=== PATIENT | female | born 1985 | race Caucasian/White ===

== ENCOUNTER 2020-11-20 22:46 | Emergency (ER) | payer SELFPAY ==
--- NOTE | 2020-11-20 22:52 | Emergency Department Report ---
Blank Doc - Documentation Documentation: 35-year-old female that presents with right middle finger laceration that occu rred today while cutting potatoes with a knife. 1- This initial assessment/diagnostic orders/clinical plan/ treatment(s) is/are subject to change based on pt's health status, clinical progression and re- assessment by fellow clinical providers in the ED. Further treatment and workup at subsequent clinical provers discretion. Patient/guardians urged not to elope from ED as their condition may be serious if not clinically assessed and managed. 2-x-rays
[2020-11-20 22:53] VITALS: BP 155/95
--- NOTE | 2020-11-20 23:24 | XRay Report ---
RIGHT HAND 3 VIEW(S) INDICATION / CLINICAL INFORMATION: lac to right middle finger COMPARISON: None available. FINDINGS: BONES / JOINT(S): No acute fracture or subluxation. No significant arthritis. SOFT TISSUES: Bandage around the fingers. No radiopaque foreign body. ADDITIONAL FINDINGS: None. Signer Name: Garry Saleh MD Signed: 11/20/2020 11:20 PM Workstation Name: [id number]
[2020-11-20] MEDS ORDERED: DIPHtheria,PERTUSSIS(ACELL),TETANUS VACCINE/PF 0.5 ML VIAL IM ONE (23:32)
[2020-11-20] MEDS ORDERED: LIDOCAINE (1%) 10 MG/1 ML VIAL 20 ML MDV INFILTRATI ONE (23:35)
[2020-11-20] MEDS ORDERED: SODIUM CHLORIDE 0.9% IRR 500 ML BOTTLE IR ONE (23:36)
[2020-11-20] MEDS ORDERED: BUPIVACAINE/PF (0.5%) 5 MG/1 ML 10 ML VIAL INFILTRATI ONE (23:38)
--- NOTE | 2020-11-20 23:46 | Emergency Department Report ---
HPI - General Chief Complaint: Wound/Laceration Time Seen by Provider: 11/20/20 22:50 - HPI HPI: Room 45 The patient is a 35-year-old female present with a chief complaint of laceration to finger. The patient states less than 1 hour ago she accidentally cut the base of her right middle finger with a kitchen knife while preparing food. The patient states she believes her last tetanus shot was between 5 and 6 years ago but is not certain. The patient states she is unable to flex her right middle finger ED Past Medical Hx - Past Medical History Previous Medical History?: No - Surgical History Additional Surgical History: - Family History Family history: no significant - Social History Smoking Status: Never Smoker Substance Use Type: None (Denies illicit drug use) - Medications Home Medications: Home Medications Medication Instructions Recorded Confirmed Last Taken Type Docusate Sodium [Colace CAP] 100 mg PO BID #60 capsule 12/19/15 Unknown Rx Ferrous Sulfate [Feosol 325 MG tab] 325 mg PO TID #90 tablet 12/19/15 Unknown Rx Ibuprofen [Motrin 800 MG tab] 800 mg PO Q8HR PRN #90 tablet 12/19/15 Unknown Rx oxyCODONE /ACETAMINOPHEN [Percocet 1 tab PO Q6HR PRN #30 tablet 12/19/15 Unknown Rx 5/325 mg] HYDROcodone/APAP 5-325 [[employer] 1 - 2 each PO Q6HR PRN #14 tablet 11/21/20 Unknown Rx 5/325] Ibuprofen [Motrin 800 MG tab] 800 mg PO Q8HR PRN #20 tablet 11/21/20 Unknown Rx cephALEXin [Keflex] 500 mg PO Q6HR #28 capsule 11/21/20 Unknown Rx ED Review of Systems ROS: Stated complaint: RT HAND LACERATION Other details as noted in HPI Constitutional: no symptoms reported Respiratory: no symptoms reported Endocrine: no symptoms reported Musculoskeletal: other (Unable to flex right middle finger) Skin: other (Laceration to right middle finger) Physical Exam - Physical Exam Vital Signs: Vital Signs 11/20/20 22:49 Temperature 98.0 F Pulse Rate 111 H Respiratory 17 Rate Blood Pressure 155/95 O2 Sat by Pulse 97 Oximetry Physical Exam: GENERAL: The patient is well-developed well-nourished female sitting in chair appearing slightly anxious HEENT: Normocephalic. Atraumatic. Extraocular motions are intact. Patient has moist mucous membranes. NECK: Supple. Trachea midline CHEST/LUNGS: There is no respiratory distress noted. HEART/CARDIOVASCULAR: Regular. Normal capillary refill right middle finger SKIN: There is an approximately 3 cm laceration encircling the palmar aspect of the right middle finger between the MCP and PIP. There is a second laceration at the base of the right ring finger just distal to the MCP approximately 2 cm in length. NEURO: The patient is awake, alert, and oriented. The patient is cooperative. Sensation to light touch intact of the right middle finger. Patient is unable to flex the right middle finger. Pulse ox placed on the right middle finger reads 99% on room air MUSCULOSKELETAL: Patient unable to flex right middle finger ED Course Vital Signs 11/20/20 22:49 Temperature 98.0 F Pulse Rate 111 H Respiratory 17 Rate Blood Pressure 155/95 O2 Sat by Pulse 97 Oximetry - Consultations Consultation #1: 11/20/20 23:42 [facility] transfer line called 11/21/20 00:30 Case discussed with orthopedic hand specialist Dr. Ignacio- states the patient has normal capillary refill and pulse ox placed on the affected finger is greater than 85 to 90% the wound may be loosely approximated in the ED the patient may follow-up as an outpatient for further management. The patient should call [phone] - Laceration /Wound Repair Right Finger Wound Location: upper extremity Wound Length (cm): 3 Wound's Depth, Shape: into muscle Wound Explored: no foreign body removed Irrigated w/ Saline (ccs): 500 Betadine Prep?: Yes Anesthesia: 1% Lidocaine Volume Anesthetic (ccs): 6 (Lidocaine 1% was mixed with bupivacaine 0.5% in a 1:1 ratio) Wound Repaired With: sutures Suture Size/Type: 4:0 Number of Sutures: 4 Sterile Dressing Applied?: Yes Lateral Finger Wound Location: mouth Wound Length (cm): 2 Wound's Depth, Shape: linear Wound Explored: clean Irrigated w/ Saline (ccs): 0 (Copious) Betadine Prep?: Yes Anesthesia: 1% Lidocaine Volume Anesthetic (ccs): 4 (Lidocaine 1% plain was mixed with bupivacaine 0.5% in a 1:1 ratio) Wound Repaired With: sutures Suture Size/Type: 4:0 Number of Sutures: 3 Sterile Dressing Applied?: Yes - Nerve Block Consent Obtained: verbal consent Time Out Performed: No Local Anesthetic Used: Lidocaine 1% Amount of anesthesia used: 6 Side: right Nerve Blocks: digital Procedure Successful: Yes Complications: none Patient Tolerated Procedure: well ED Medical Decision Making - Medical Decision Making It was explained to the patient that she needs to follow-up promptly with the orthopedic hand surgeon whose number I will provide for further management. I explained that failure to do so could result in permanent dysfunction or loss abuse of her finger. This was done through use of a lang interpreter. Patient verbalized understanding and had no outstanding questions - Differential Diagnosis Right middle finger laceration, flexor tendon laceration Critical care attestation.: If time is entered above; I have spent that time in minutes in the direct care of this critically ill patient, excluding procedure time. ED Disposition Clinical Impression: Laceration of right middle finger with tendon involvement Disposition: TO HOME OR SELFCARE Is pt being admited?: No Does the pt Need Aspirin: No Condition: Stable Instructions: Laceration Care, Adult, [id number], Tendon Repair Additional Instructions: Is very important that you contact the orthopedic hand specialist as soon as possible for repair of your tendons. Failure to do so may result in permanent dysfunction or loss of use. Return to the emergency department should you develop worsening symptoms, inability to tolerate food or liquids, high fever or any other concerns Prescriptions: cephALEXin [Keflex] 500 mg PO Q6HR #28 capsule Ibuprofen [Motrin 800 MG tab] 800 mg PO Q8HR PRN #20 tablet PRN Reason: Pain, Moderate (4-6) HYDROcodone/APAP 5-325 [[employer] 5/325] 1 - 2 each PO Q6HR PRN #14 tablet PRN Reason: Pain Referrals: Dr. Ignacio, [facility] [Other] - 3-5 Days (It is extremely important that you contact this orthopedic surgeon as soon as possible for further management of your tendon injury.) Time of Disposition: 01:27
[2020-11-21] MEDS ORDERED: ceFAZolin 1 GM VIAL IM ONE (00:29)
[2020-11-21] MEDS ORDERED: WATER FOR INJ Sterile (PF) 10 ML ONE (00:43)
== END 2020-11-21 02:00 | disposition home or self-care (01) ==
LOC: ED 22:46
DX: S61.212A Laceration without foreign body of right middle finger without damage to nail, initial encounter (principal); Z98.890 Other specified postprocedural states; Z79.899 Other long term (current) drug therapy; W26.0XXA Contact with knife, initial encounter; Y93.89 Activity, other specified; Y92.89 Other specified places as the place of occurrence of the external cause; Y99.8 Other external cause status
CPT/HCPCS: 12002; 12011; 73130; 90471; 90715; 96372; 99283; J0690